=== PATIENT | female | born 1965 | race Caucasian/White ===

== ENCOUNTER → 2016-06-30 | Outpatient (REF) | payer BC | LOC: M LAB REF 16:51 | PROVIDERS: ATTEND Obstetrics & Gynecology | DX: R10.2 Pelvic and perineal pain (principal) ==

== ENCOUNTER → 2016-08-03 | Outpatient (REF) | payer BC | LOC: M LAB REF 17:05 | PROVIDERS: ATTEND Advanced Practice Midwife | DX: Z12.4 Encounter for screening for malignant neoplasm of cervix (principal) ==

== ENCOUNTER 2016-09-18 19:48 | Emergency (ER) | payer BC ==
[~2016-09-18] VITALS: Ht 154.9 cm; Wt 63.5 kg
[2016-09-18 19:48] VITALS: BP 169/85
[2016-09-18] MEDS ORDERED: AZO95TAB PO (19:55)
[2016-09-18] MEDS ORDERED: PENT10CA PO (19:55)
[2016-09-18] MEDS ORDERED: LEVA250T PO (20:26)
[2016-09-18] MEDS ORDERED: PYRI200T5 PO (20:26)
[2016-09-18] MEDS ORDERED: PHENAZOPYRIDINE 100 MG TAB PO ONE (20:30)
[2016-09-18] MEDS ORDERED: LevoFLOXacin 250 MG TABLET PO ONE (20:30)
== END 2016-09-18 20:35 | disposition home or self-care (01) ==
LOC: M ED 20:28
DX: N30.90 Cystitis, unspecified without hematuria (principal); F99 Mental disorder, not otherwise specified; R51 Headache; Z87.440 Personal history of urinary (tract) infections; Z88.1 Allergy status to other antibiotic agents; Z88.2 Allergy status to sulfonamides; Z91.040 Latex allergy status; Z79.899 Other long term (current) drug therapy

== ENCOUNTER → 2017-08-05 | Outpatient (REF) | payer BC ==
[2017-08-07 14:12] LABS: HPV HYBRID CAPTURE II Negative (Negative)
== END ==
LOC: M LAB REF 13:37
DX: Z01.419 Encounter for gynecological examination (general) (routine) without abnormal findings (principal); Z11.51 Encounter for screening for human papillomavirus (HPV)
CPT/HCPCS: G0123

== ENCOUNTER 2018-04-09 17:12 | Emergency (ER) | payer BC ==
[~2018-04-09] VITALS: Ht 154.9 cm; Wt 65.0 kg
[2018-04-09 17:12] VITALS: BP 174/84
[~2018-04-09 17:12] MED LIST: AZO95TAB PO; LEVA250T13 PO; MELA5TAB21 PO; PENT10CA PO; PROT20TA11 PO; PYRI1TAB5 PO; TURM500C3 PO
[2018-04-09] MEDS ORDERED: KETOROLAC 60 MG/2 ML VIAL (J1885) IM ONE (17:45)
[2018-04-09] MEDS ORDERED: NORCOTAB PO (19:07)
--- NOTE | 2018-04-09 19:12 | REPVR ---
EXAM: US Left Duplex Lower Extremity Veins, Limited EXAM DATE/TIME: 04/09/2018 6:55 PM CLINICAL HISTORY: 52 years old, female; Pain; Leg, lower; Left; Additional info: Left posterior knee pain, R/O dvt vs bakers cyst TECHNIQUE: Real-time Duplex ultrasound of the Left Lower Extremity with 2-D webber scale, color Doppler flow and spectral waveform analysis. Limited exam focused on the left lower extremity veins. COMPARISON: US Duplex, Ext,LOWER veins,unilat 04/24/2013 9:47 AM FINDINGS: Left deep veins: Unremarkable. The common femoral, femoral, popliteal and visualized calf veins are patent without thrombus. Normal compressibility, augmentation response and Doppler waveforms. Left superficial veins: Unremarkable. Saphenofemoral junction is patent without thrombus. Soft tissues: Unremarkable. IMPRESSION: No sonographic evidence of deep vein thrombosis. Electronically signed by: Dewayne Anthony On 04/09/2018 19:12:40 PM
[2018-04-09] MEDS ORDERED: NORCO 5/325MG TABLET (BULK FOR ED) PO ONE (19:15)
== END 2018-04-09 19:26 | disposition home or self-care (01) ==
LOC: M ED 17:12
DX: M79.662 Pain in left lower leg (principal); K21.9 Gastro-esophageal reflux disease without esophagitis; Z79.899 Other long term (current) drug therapy; Z91.040 Latex allergy status; Z88.2 Allergy status to sulfonamides; Z88.1 Allergy status to other antibiotic agents
CPT/HCPCS: 93971; 96372; 99282; J1885

== ENCOUNTER → 2018-08-22 | Outpatient (REF) | payer BC ==
[~2018-08-22] MED LIST changes: +HYDR-3715 PO
[2018-08-25 14:14] LABS: HPV HYBRID CAPTURE II Negative (Negative)
== END ==
LOC: M LAB REF 18:42
PROVIDERS: ATTEND Advanced Practice Midwife
DX: Z12.4 Encounter for screening for malignant neoplasm of cervix (principal)
CPT/HCPCS: 87624; G0123

== ENCOUNTER → 2018-11-24 | Outpatient (REF) | payer BC | LOC: M LAB REF 16:14 | PROVIDERS: ATTEND Physician Assistant | DX: N39.0 Urinary tract infection, site not specified (principal) ==

== ENCOUNTER 2019-03-13 04:10 | Emergency (ER) | payer BC ==
[~2019-03-13] VITALS: Ht 152.4 cm; Wt 66.4 kg
[2019-03-13] MEDS ORDERED: MAGN400C2 PO (04:16)
[2019-03-13] MEDS ORDERED: MULTCAP PO (04:16)
[2019-03-13] MEDS ORDERED: NS 1,000 ML IV ONE (04:30)
[2019-03-13] MEDS ORDERED: METOCLOPRAMIDE INJ 10MG/2ML VIAL (J2765) IV ONE (04:30)
[2019-03-13 04:42] LABS: BASO % 0.2 % (0.0-1.0); EOS % 0.2 % (0.0-3.0); HEMATOCRIT 41.1 % (36.0-47.0); HEMOGLOBIN 13.7 g/dl (12.0-15.5); LYMPH # 0.4 10^3/uL (1.5-5.0); LYMPH % 8.6 % (24.0-44.0); MEAN CORPUSCULAR HEMOGLOBIN 28.5 pg (27.0-33.0); MEAN CORPUSCULAR HGB CONC 33.3 g/dl (32.0-36.5); MEAN CORPUSCULAR VOLUME 85.6 fl (80.0-96.0); MONO # 0.2 10^3/uL (0.0-0.8); MONO % 4.8 % (0.0-5.0); NEUTROPHILS # 3.8 10^3/uL (1.5-8.5); PLATELET COUNT, AUTOMATED 179 10^3/uL (150-450); WHITE BLOOD COUNT 4.4 10^3/uL (4.0-10.0)
[2019-03-13 05:16] LABS: ALBUMIN 3.5 GM/DL (3.2-5.2); ALT/SGPT 25 U/L (12-78); BILIRUBIN,DIRECT 0.2 MG/DL (0.0-0.2); BILIRUBIN,TOTAL 0.6 MG/DL (0.2-1.0); BLOOD UREA NITROGEN 14 MG/DL (7-18); CALCIUM LEVEL 8.9 MG/DL (8.5-10.1); CARBON DIOXIDE LEVEL 26 MEQ/L (21-32); CHLORIDE LEVEL 104 MEQ/L (98-107); CREATININE FOR GFR 0.74 MG/DL (0.55-1.30); GLOMERULAR FILTRATION RATE > 60.0 (>51); GLUCOSE, FASTING 131 MG/DL (70-100); LIPASE 69 U/L (73-393); POTASSIUM SERUM 3.9 MEQ/L (3.5-5.1); SODIUM LEVEL 139 MEQ/L (136-145)
[2019-03-13] MEDS ORDERED: REGL10TA6 PO (06:03)
[2019-03-13 06:34] VITALS: BP 116/62
== END 2019-03-13 07:11 | disposition home or self-care (01) ==
LOC: M ED 04:10
DX: K52.9 Noninfective gastroenteritis and colitis, unspecified (principal); Z20.828 Contact with and (suspected) exposure to other viral communicable diseases; Z88.2 Allergy status to sulfonamides; Z88.1 Allergy status to other antibiotic agents; Z91.040 Latex allergy status; Z79.899 Other long term (current) drug therapy
CPT/HCPCS: 80048; 80076; 81001; 83690; 85025; 96361; 96374; 99284; J2765

== ENCOUNTER → 2019-10-09 | Outpatient (CLI) | payer BC ==
[~2019-10-09] MED LIST changes: +MAGN400C2 PO; +MULTCAP PO; +REGL10TA6 PO
--- NOTE | 2019-10-09 16:46 | REPMRS ---
Patient History The patient states she had a clinical breast exam in September 2019. Patient is postmenopausal. No known family history of cancer. Digital Woman Screen Mammo: October 09, 2019 - Exam #: [id number] Bilateral CC and MLO view(s) were taken. Technologist: Lashanda Cee, Technologist No prior studies available for comparison. FINDINGS: There are scattered fibroglandular densities. The Volpara volumetric breast density category is: B. There is no evidence of dominant mass, architectural distortion, or grouped microcalcification typical of malignancy. 3-D tomosynthesis shows no additional findings. Assessment: BI-RADS/ACR category 1 mammogram. Negative Mammogram. Recommendation Routine screening mammogram of both breasts in 1 year (for women over age 40). This patient's Lifetime Breast Cancer RIsk is estimated at 7.5 %. This mammogram was interpreted with the aid of an FDA-approved computer-aided dectection system. Electronically Signed By: Colton Tinajero MD 10/09/19 0312
== END ==
LOC: M WHC 15:19
PROVIDERS: ATTEND Nurse Practitioner Women's Health
DX: Z12.31 Encounter for screening mammogram for malignant neoplasm of breast (principal); Z78.0 Asymptomatic menopausal state

== ENCOUNTER → 2019-12-11 | Outpatient (REF) | payer BC | LOC: M WHC 14:30 | PROVIDERS: ATTEND Advanced Practice Midwife | DX: Z12.4 Encounter for screening for malignant neoplasm of cervix (principal) ==

== ENCOUNTER 2020-04-19 20:44 | Emergency (ER) | payer BC ==
[~2020-04-19] VITALS: Ht 154.9 cm; Wt 65.8 kg
[2020-04-19] MEDS ORDERED: ACET-908 PO (20:53)
[2020-04-19] MEDS ORDERED: ASPI1CHW3 PO (20:53)
[2020-04-19] MEDS ORDERED: GI COCKTAIL 50ML BTL(HYOSCYAMINE/MAALOX/LIDOCAINE VISCOUS)(1:3:1) PO ONE (21:30)
[2020-04-19 21:56] VITALS: BP 156/80
[2020-04-19] MEDS ORDERED: METOPROLOL TART 25 MG TABLET PO ONE (22:00)
[2020-04-19] MEDS ORDERED: ACETAMINOPHEN TAB 650MG DOSE (2X325MG) PO ONE (22:00)
--- NOTE | 2020-04-19 22:01 | REPVR ---
PROCEDURE INFORMATION: Exam: XR Chest, 1 View Exam date and time: 04/19/2020 9:28 PM Age: 54 years old Clinical indication: Chest pain; Type not specified TECHNIQUE: Imaging protocol: XR of the chest Views: 1 view. COMPARISON: No relevant prior studies available. FINDINGS: Lungs: Unremarkable. No consolidation. Pleural space: Unremarkable. No pleural effusion. No pneumothorax. Heart/Mediastinum: Unremarkable. No cardiomegaly. Bones/joints: Unremarkable. IMPRESSION: No acute findings. Electronically signed by: Daniel Tam On 04/19/2020 22:01:28 PM
[2020-04-19 22:46] LABS: BASO % 0.2 % (0.0-1.0); EOS # 0.3 10^3/uL (0.0-0.5); HEMATOCRIT 42.6 % (36.0-47.0); HEMOGLOBIN 13.8 g/dl (12.0-15.5); LYMPH # 1.6 10^3/uL (1.5-5.0); LYMPH % 20.1 % (24.0-44.0); MEAN CORPUSCULAR HEMOGLOBIN 28.5 pg (27.0-33.0); MEAN CORPUSCULAR HGB CONC 32.4 g/dl (32.0-36.5); MEAN CORPUSCULAR VOLUME 87.8 fl (80.0-96.0); MONO # 0.5 10^3/uL (0.0-0.8); MONO % 6.2 % (0.0-5.0); NEUTROPHILS # 5.5 10^3/uL (1.5-8.5); NEUTROPHILS % 69.1 % (36.0-66.0); PLATELET COUNT, AUTOMATED 269 10^3/uL (150-450); RED BLOOD COUNT 4.85 10^6/uL (4.00-5.40)
[2020-04-19 22:50] LABS: INR 0.87
[2020-04-19 22:51] LABS: PARTIAL THROMBOPLASTIN TIME 26.7 SECONDS (24.2-38.5)
[2020-04-19 23:05] LABS: ALBUMIN 4.4 GM/DL (3.2-5.2); ALT/SGPT 40 U/L (12-78); BILIRUBIN,DIRECT < 0.1 MG/DL (0.0-0.2); BILIRUBIN,TOTAL 0.4 MG/DL (0.2-1.0); BLOOD UREA NITROGEN 25 MG/DL (7-18); CALCIUM LEVEL 9.2 MG/DL (8.5-10.1); CARBON DIOXIDE LEVEL 30 MEQ/L (21-32); CHLORIDE LEVEL 104 MEQ/L (98-107); CK-MB VALUE MASS 1.3 NG/ML (<3.6); CPK CREATINE PHOSPHOKINASE 66 U/L (26-192); CREATININE FOR GFR 0.83 MG/DL (0.55-1.30); FREE T4 1.02 NG/DL (0.76-1.46); GLOMERULAR FILTRATION RATE > 60.0 (>51); GLUCOSE, FASTING 117 MG/DL (70-100); LIPASE 192 U/L (73-393); MAGNESIUM LEVEL 2.1 MG/DL (1.8-2.4); MB/CK RELATIVE INDEX 1.97 (< OR =4); NT-PRO BNP 23 PG/ML (<125); POTASSIUM SERUM 3.9 MEQ/L (3.5-5.1); SODIUM LEVEL 138 MEQ/L (136-145); TOTAL PROTEIN 7.8 GM/DL (6.4-8.2); TROPONIN I < 0.02 NG/ML (< 0.10)
[2020-04-19] MEDS ORDERED: METO1TAB87 PO (23:21)
[2020-04-19 23:30] VITALS: BP 119/70
--- NOTE | 2020-04-20 17:57 | ECGEPIP ---
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
== END 2020-04-19 23:37 | disposition home or self-care (01) ==
LOC: M ED 20:44
DX: R00.2 Palpitations (principal); I10 Essential (primary) hypertension; R51.9 Headache, unspecified; Z87.891 Personal history of nicotine dependence; Z88.2 Allergy status to sulfonamides; Z88.1 Allergy status to other antibiotic agents; Z91.040 Latex allergy status; Z79.899 Other long term (current) drug therapy; Z79.82 Long term (current) use of aspirin

== ENCOUNTER → 2020-05-22 | Outpatient (CLI) | payer BC ==
[~2020-05-22] MED LIST changes: +ACET-908 PO; +ASPI1CHW3 PO; +METO1TAB87 PO
[2020-05-22 12:57] LABS: BLOOD UREA NITROGEN 18 MG/DL (7-18); CALCIUM LEVEL 9.2 MG/DL (8.5-10.1); CARBON DIOXIDE LEVEL 28 MEQ/L (21-32); CHLORIDE LEVEL 107 MEQ/L (98-107); CREATININE FOR GFR 0.69 MG/DL (0.55-1.30); GLOMERULAR FILTRATION RATE > 60.0 (>51); GLUCOSE, FASTING 87 MG/DL (70-100); POTASSIUM SERUM 4.3 MEQ/L (3.5-5.1); SODIUM LEVEL 142 MEQ/L (136-145)
[2020-05-22 13:12] LABS: CREATININE, URINE 68.5 MG/DL; MALB URINE SIEMENS 5.7 MG/L; MAU/CREAT RATIO 8.3 MCG/MG (0.0-30.0)
== END ==
LOC: M WUC 10:41
PROVIDERS: ATTEND Internal Medicine Cardiovascular Disease
DX: I10 Essential (primary) hypertension (principal)

== ENCOUNTER 2020-07-22 15:47 | Emergency (ER) | payer BC ==
[~2020-07-22] VITALS: Ht 154.9 cm; Wt 64.2 kg
[2020-07-22 15:48] VITALS: BP 173/83
[2020-07-22 18:26] LABS: BASO % 0.5 % (0.0-1.0); EOS # 0.4 10^3/uL (0.0-0.5); EOS % 6.9 % (0.0-3.0); HEMATOCRIT 41.7 % (36.0-47.0); HEMOGLOBIN 13.8 g/dl (12.0-15.5); LYMPH # 1.4 10^3/uL (1.5-5.0); LYMPH % 25.2 % (24.0-44.0); MEAN CORPUSCULAR HEMOGLOBIN 29.1 pg (27.0-33.0); MEAN CORPUSCULAR HGB CONC 33.1 g/dl (32.0-36.5); MEAN CORPUSCULAR VOLUME 87.8 fl (80.0-96.0); MONO # 0.3 10^3/uL (0.0-0.8); MONO % 5.2 % (2.0-8.0); NEUTROPHILS # 3.5 10^3/uL (1.5-8.5); NEUTROPHILS % 61.8 % (36.0-66.0); PLATELET COUNT, AUTOMATED 255 10^3/uL (150-450); RED BLOOD COUNT 4.75 10^6/uL (4.00-5.40); WHITE BLOOD COUNT 5.6 10^3/uL (4.0-10.0)
[2020-07-22 18:39] LABS: INR 0.91; PARTIAL THROMBOPLASTIN TIME 24.8 SECONDS (24.2-38.5); PROTHROMBIN TIME 12.4 SECONDS (12.5-14.3)
[2020-07-22 18:44] LABS: ALBUMIN 4.4 GM/DL (3.2-5.2); ALT/SGPT 29 U/L (12-78); AMYLASE 63 U/L (25-115); BILIRUBIN,DIRECT < 0.1 MG/DL (0.0-0.2); BILIRUBIN,TOTAL 0.3 MG/DL (0.2-1.0); BLOOD UREA NITROGEN 14 MG/DL (7-18); CALCIUM LEVEL 9.6 MG/DL (8.5-10.1); CARBON DIOXIDE LEVEL 30 MEQ/L (21-32); CHLORIDE LEVEL 107 MEQ/L (98-107); CREATININE FOR GFR 0.76 MG/DL (0.55-1.30); GLOMERULAR FILTRATION RATE > 60.0 (>51); GLUCOSE, FASTING 106 MG/DL (70-100); LIPASE 128 U/L (73-393); POTASSIUM SERUM 4.1 MEQ/L (3.5-5.1); SODIUM LEVEL 141 MEQ/L (136-145); TOTAL PROTEIN 8.1 GM/DL (6.4-8.2)
== END 2020-07-22 19:32 | disposition left against medical advice (07) ==
LOC: M ED 15:47
DX: R10.9 Unspecified abdominal pain (principal); Z53.21 Procedure and treatment not carried out due to patient leaving prior to being seen by health care provider; Z79.899 Other long term (current) drug therapy; Z88.2 Allergy status to sulfonamides; Z88.1 Allergy status to other antibiotic agents; Z91.040 Latex allergy status

== ENCOUNTER → 2020-07-22 | Outpatient (REF) | payer BC ==
[~2020-07-22] MED LIST changes: -ACET-908 PO; +ACET-910 PO
== END ==
LOC: M LAB REF 19:42
PROVIDERS: ATTEND Physician Assistant
DX: L03.316 Cellulitis of umbilicus (principal)

== ENCOUNTER → 2021-02-03 | Outpatient (REF) | payer BC | LOC: M SFHCWAGY 13:18 | PROVIDERS: ATTEND Advanced Practice Midwife | DX: Z12.4 Encounter for screening for malignant neoplasm of cervix (principal); Z01.419 Encounter for gynecological examination (general) (routine) without abnormal findings ==

== ENCOUNTER → 2021-03-14 | Outpatient (CLI) | payer BC ==
--- NOTE | 2021-03-14 08:43 | REPMRS ---
Patient History The patient states she had a clinical breast exam in January 2021. No known family history of cancer. Patient states no breast complaints today. Patient has signed MRS History Sheet. Digital Woman Screen Mammo: March 14, 2021 - Exam #: [id number] Bilateral CC and MLO view(s) were taken. Technologist: Maryjo Suarez Technologist Prior study comparison: October 09, 2019, bilateral digital woman screen mammo performed at [facility]. FINDINGS: There are scattered fibroglandular densities. Screening. Digital screening (2D) mammography was performed bilaterally in the CC and MLO projections. Additionally, breast tomosynthesis (3D mammography) was performed bilaterally in the CC and MLO projections. Todays exam was compared to the prior exam/exams. By history, the patient has no complaints of a palpable breast abnormality or other significant breast complaints. The breasts are unchanged in size and shape. There are no corona-soft tissue densities or spiculated masses. There is no internal architectural distortion. Once again, stable benign appearing calcifications are seen.There are no suspicious corona-calcific clusters. Skin thickening or nipple retraction is not present. IMPRESSION: BI-RADS Category 2- Benign Findings. There is no evidence of malignant alteration of the breasts. Followup examination recommended in one year. The Volpara volumetric breast density category is B, there are scattered areas of fibroglandular densities. This mammogram was read with the assistance of [employer],an FDA approved computer aided detection system for mammography. The lifetime Tyrer-Cuzick score is 7.4 % Negative x-ray reports should not delay surgical consultation if a dominant or clinically suspicious mass is present. Not all breast cancers can be identified by mammography. Therefore, we recommend that you continue to perform regular breast self-examination and physical examination and then promptly contact your physician of any concerns or changes. Adenosis and dense breasts may obscure an underlying neoplasm. Assessment: BI-RADS/ACR category 2 mammogram. Benign Findings. Recommendation Routine screening mammogram of both breasts in 1 year. Electronically Signed By: Nas Brown DO 03/14/21 0884
== END ==
LOC: M WHC 07:21
PROVIDERS: ATTEND Advanced Practice Midwife
DX: Z12.31 Encounter for screening mammogram for malignant neoplasm of breast (principal)

== ENCOUNTER 2021-04-22 05:05 | Emergency (ER) | payer BC ==
[~2021-04-22] VITALS: Ht 154.9 cm; Wt 65.0 kg
[2021-04-22] MEDS ORDERED: CARB1TAB PO (05:16)
[2021-04-22] MEDS ORDERED: CARV6.25 PO (05:16)
[2021-04-22 06:16] LABS: BASO % 0.4 % (0.0-1.0); EOS # 0.2 10^3/uL (0.0-0.5); EOS % 3.3 % (0.0-3.0); HEMATOCRIT 37.9 % (36.0-47.0); HEMOGLOBIN 12.9 g/dl (12.0-15.5); LYMPH # 0.8 10^3/uL (1.5-5.0); LYMPH % 16.7 % (24.0-44.0); MEAN CORPUSCULAR HEMOGLOBIN 29.3 pg (27.0-33.0); MEAN CORPUSCULAR VOLUME 85.9 fl (80.0-96.0); MONO # 0.3 10^3/uL (0.0-0.8); MONO % 5.9 % (2.0-8.0); NEUTROPHILS # 3.6 10^3/uL (1.5-8.5); NEUTROPHILS % 73.3 % (36.0-66.0); PLATELET COUNT, AUTOMATED 277 10^3/uL (150-450); RED BLOOD COUNT 4.41 10^6/uL (4.00-5.40); WHITE BLOOD COUNT 4.9 10^3/uL (4.0-10.0)
[2021-04-22] MEDS ORDERED: CARVedilol 6.25 MG TAB PO ONE (06:20)
[2021-04-22] MEDS ORDERED: PANTOPRAZOLE 40MG VIAL (C9113 PER 1) IV ONE (06:35)
[2021-04-22 06:44] LABS: ALBUMIN 3.4 GM/DL (3.2-5.2); ALT/SGPT 16 U/L (12-78); BILIRUBIN,DIRECT < 0.1 MG/DL (0.0-0.2); BILIRUBIN,TOTAL 0.2 MG/DL (0.2-1.0); BLOOD UREA NITROGEN 18 MG/DL (7-18); CALCIUM LEVEL 9.2 MG/DL (8.5-10.1); CARBON DIOXIDE LEVEL 27 MEQ/L (21-32); CHLORIDE LEVEL 108 MEQ/L (98-107); CREATININE FOR GFR 0.79 MG/DL (0.55-1.30); GLOMERULAR FILTRATION RATE > 60.0 (>51); GLUCOSE, FASTING 142 MG/DL (70-100); LIPASE 102 U/L (73-393); POTASSIUM SERUM 4.2 MEQ/L (3.5-5.1); SODIUM LEVEL 141 MEQ/L (136-145); TOTAL PROTEIN 7.2 GM/DL (6.4-8.2)
[2021-04-22 06:45] LABS: CK-MB VALUE MASS < 1.0 NG/ML (<3.6); CPK CREATINE PHOSPHOKINASE 44 U/L (26-192); MB/CK RELATIVE INDEX 2.27 (< OR =4)
[2021-04-22] MEDS ORDERED: ISOVUE-370 76% 100ML VIAL As Ordered ONE (07:04)
[2021-04-22 07:08] LABS: RSV AMPLIFICATION NEGATIVE (NEGATIVE)
[2021-04-22 07:59] VITALS: BP 127/77
== END 2021-04-22 08:04 | disposition home or self-care (01) ==
LOC: M ED 05:05
DX: M94.0 Chondrocostal junction syndrome [Tietze] (principal); R07.89 Other chest pain; K12.0 Recurrent oral aphthae; I10 Essential (primary) hypertension; R91.1 Solitary pulmonary nodule; R51.9 Headache, unspecified; K21.9 Gastro-esophageal reflux disease without esophagitis; G25.81 Restless legs syndrome; Z87.891 Personal history of nicotine dependence; Z88.2 Allergy status to sulfonamides; Z88.1 Allergy status to other antibiotic agents; Z91.040 Latex allergy status
CPT/HCPCS: 71046; 71275; 80048; 80076; 82550; 82553; 83690; 84484; 85025; 85379; 87631; 93005; 96374; 99284; C9113; Q9967

== ENCOUNTER → 2021-04-30 | Outpatient (CLI) | payer BC ==
[~2021-04-30] MED LIST changes: +CARB1TAB PO; +CARV6.25 PO
[2021-04-30 09:57] LABS: CHOLESTEROL RISK RATIO 3.684 (<5)
== END ==
LOC: M WUC 08:39
PROVIDERS: ATTEND Internal Medicine Cardiovascular Disease
DX: I10 Essential (primary) hypertension (principal)

== ENCOUNTER → 2021-06-24 | Outpatient (CLI) | payer BC ==
[2021-06-24 16:31] LABS: FERRITIN 40 NG/ML (8-252); IRON (FE) 71 UG/DL (50-170); PERCENT SATURATION 20.2 % (13.2-45.0); RHEUMATOID FACTOR QUANT < 10.0 IU/ML (<15.0); TOTAL IRON BINDING CAPACITY 351 UG/DL (250-450)
[2021-06-24 16:50] LABS: TOTAL 25(OH) VITAMIN D 29.8 NG/ML (30.0-100.0); VITAMIN B12 LEVEL 567 PG/ML
== END ==
LOC: M WUC 14:05
PROVIDERS: ATTEND Psychiatry & Neurology Neurology
DX: D50.9 Iron deficiency anemia, unspecified (principal)

== ENCOUNTER → 2022-03-18 | Outpatient (REF) | payer BC | LOC: M LAB REF 09:29 | PROVIDERS: ATTEND Physician Assistant | DX: R30.0 Dysuria (principal) ==

== ENCOUNTER → 2022-04-09 | Outpatient (CLI) | payer BC ==
[2022-04-09 14:26] LABS: HEMATOCRIT 38.9 % (36.0-47.0); HEMOGLOBIN 12.6 g/dl (12.0-15.5); MEAN CORPUSCULAR HGB CONC 32.4 g/dl (32.0-36.5); MEAN CORPUSCULAR VOLUME 89.4 fl (80.0-96.0); PLATELET COUNT, AUTOMATED 274 10^3/uL (150-450); RED BLOOD COUNT 4.35 10^6/uL (4.00-5.40); WHITE BLOOD COUNT 9.8 10^3/uL (4.0-10.0)
== END ==
LOC: M PLALAB 10:41
PROVIDERS: ATTEND Advanced Practice Midwife
DX: Z01.419 Encounter for gynecological examination (general) (routine) without abnormal findings (principal)

== ENCOUNTER → 2022-04-09 | Outpatient (REF) | payer BC | LOC: M PLALAB 12:56 | PROVIDERS: ATTEND Advanced Practice Midwife | DX: Z12.4 Encounter for screening for malignant neoplasm of cervix (principal) | CPT/HCPCS: 87624; G0123 ==

== ENCOUNTER → 2022-04-09 | Outpatient (CLI) | payer BC | LOC: M WHC 09:13 | PROVIDERS: ATTEND Nurse Practitioner Family | DX: Z12.31 Encounter for screening mammogram for malignant neoplasm of breast (principal) ==

== ENCOUNTER 2022-05-08 15:55 | Emergency (ER) | payer BC ==
[~2022-05-08] VITALS: Ht 152.4 cm; Wt 67.4 kg
[2022-05-08] MEDS ORDERED: ASPIRIN 81MG CHEW TABLET PO ONE (16:55)
[2022-05-08] MEDS ORDERED: GI COCKTAIL 50ML BTL(HYOSCYAMINE/MAALOX/LIDOCAINE VISCOUS)(1:3:1) PO ONE (16:55)
[2022-05-08 16:57] LABS: HEMATOCRIT 39.8 % (36.0-47.0); HEMOGLOBIN 13.6 g/dl (12.0-15.5); MEAN CORPUSCULAR HEMOGLOBIN 29.8 pg (27.0-33.0); MEAN CORPUSCULAR HGB CONC 34.2 g/dl (32.0-36.5); MEAN CORPUSCULAR VOLUME 87.1 fl (80.0-96.0); PLATELET COUNT, AUTOMATED 284 10^3/uL (150-450); RED BLOOD COUNT 4.57 10^6/uL (4.00-5.40); WHITE BLOOD COUNT 7.1 10^3/uL (4.0-10.0)
[2022-05-08] MEDS: NITROGLYCERIN 0.4MG SUBL TABLET SL PRN ×2 (17:05→18:27)
[2022-05-08 17:16] LABS: BASO % 0.3 % (0.0-1.0); EOS # 0.3 10^3/uL (0.0-0.5); EOS % 4.1 % (0.0-3.0); LYMPH # 1.2 10^3/uL (1.5-5.0); LYMPH % 17.3 % (24.0-44.0); MONO # 0.5 10^3/uL (0.0-0.8); MONO % 6.5 % (2.0-8.0); NEUTROPHILS # 5.1 10^3/uL (1.5-8.5); NEUTROPHILS % 71.5 % (36.0-66.0)
[2022-05-08 17:18] LABS: ALBUMIN 3.9 G/DL (3.2-5.2); ALKALINE PHOSPHATASE 78 U/L (46-116); ALT/SGPT 20 U/L (7.0-40); AST/SGOT 21 U/L (<34); BILIRUBIN,TOTAL 0.4 MG/DL (0.3-1.2); BLOOD UREA NITROGEN 19 MG/DL (9-23); CALCIUM LEVEL 9.1 MG/DL (8.5-10.1); CARBON DIOXIDE LEVEL 25 MMOL/L (20-31); CHLORIDE LEVEL 107 MMOL/L (98-107); CK-MB VALUE MASS < 1.0 NG/ML (<3.6); CREATININE FOR GFR 0.88 MG/DL (0.55-1.30); GLOMERULAR FILTRATION RATE > 60.0 (>51); GLUCOSE, FASTING 133 MG/DL (60-100); POTASSIUM SERUM 4.1 MMOL/L (3.5-5.1); SODIUM LEVEL 140 MMOL/L (136-145); TOTAL PROTEIN 7.8 G/DL (5.7-8.2)
[2022-05-08 17:24] LABS: CPK CREATINE PHOSPHOKINASE 59 U/L (34-145); MB/CK RELATIVE INDEX 1.69 (< OR =4)
[2022-05-08] MEDS ORDERED: ISOVUE-370 76% 100ML VIAL As Ordered ONE (17:28)
[2022-05-08 17:47] LABS: INR 0.91; PARTIAL THROMBOPLASTIN TIME 25.8 SECONDS (24.8-34.2); PROTHROMBIN TIME 12.4 SECONDS (12.5-14.5)
[2022-05-08 17:57] LABS: LIPASE 34 U/L (12-53)
[2022-05-08 18:02] LABS: THYROID STIMULATING HORMONE 1.991 uIU/ML (0.55-4.78)
[2022-05-08 18:13] LABS: CK-MB VALUE MASS < 1.0 NG/ML (<3.6); CPK CREATINE PHOSPHOKINASE 69 U/L (34-145); MB/CK RELATIVE INDEX 1.44 (< OR =4)
[2022-05-08 18:27] VITALS: BP 127/68
[2022-05-08 19:14] LABS: RSV AMPLIFICATION NEGATIVE (NEGATIVE)
[2022-05-08 20:56] VITALS: BP 124/56
== END 2022-05-08 21:18 | disposition home or self-care (01) ==
LOC: M ED 15:55
DX: E07.9 Disorder of thyroid, unspecified (principal); I10 Essential (primary) hypertension; K21.9 Gastro-esophageal reflux disease without esophagitis; G25.81 Restless legs syndrome; Z87.891 Personal history of nicotine dependence; Z79.899 Other long term (current) drug therapy; Z88.2 Allergy status to sulfonamides; Z88.1 Allergy status to other antibiotic agents; Z91.040 Latex allergy status

== ENCOUNTER → 2022-09-03 | Outpatient (CLI) | payer BC ==
[~2022-09-03] MED LIST changes: +ASPI-655 PO; -ASPI1CHW3 PO
== END ==
LOC: M RAD 10:54
PROVIDERS: ATTEND Internal Medicine
DX: R91.1 Solitary pulmonary nodule (principal)

== ENCOUNTER → 2023-04-22 | Outpatient (CLI) | payer BC | LOC: M WHC 15:10 | PROVIDERS: ATTEND Advanced Practice Midwife | DX: Z12.31 Encounter for screening mammogram for malignant neoplasm of breast (principal) ==

== ENCOUNTER → 2023-05-03 | Outpatient (CLI) | payer BC | LOC: M RAD 14:30 | PROVIDERS: ATTEND Orthopaedic Surgery | DX: M79.662 Pain in left lower leg (principal) ==

== ENCOUNTER → 2023-05-26 | Outpatient (REF) | payer BC | LOC: M LAB REF 20:49 | PROVIDERS: ATTEND Student in an Organized Health Care Education/Training Program | DX: L03.011 Cellulitis of right finger (principal) ==

== ENCOUNTER → 2023-08-19 | Outpatient (CLI) | payer BC ==
[2023-08-19 12:07] LABS: ALBUMIN 3.4 G/DL (3.2-5.2); ALKALINE PHOSPHATASE 78 U/L (46-116); ALT/SGPT 21 U/L (7.0-40); AST/SGOT 10 U/L (<34); BILIRUBIN,TOTAL 0.4 MG/DL (0.3-1.2); BLOOD UREA NITROGEN 18 MG/DL (9-23); CALCIUM LEVEL 9.2 MG/DL (8.5-10.1); CARBON DIOXIDE LEVEL 28 MMOL/L (20-31); CHLORIDE LEVEL 107 MMOL/L (98-107); CHOLESTEROL LEVEL 246 MG/DL (<200); CHOLESTEROL RISK RATIO 4.35 (<5); CREATININE FOR GFR 0.61 MG/DL (0.55-1.30); GLOMERULAR FILTRATION RATE > 60.0 (>51); GLUCOSE, FASTING 135 MG/DL (60-100); HDL CHOLESTEROL 56.5 MG/DL (>40); LDL CHOLESTEROL 172.3 MG/DL (<100); NON-HDL-C 189.5 MG/DL; POTASSIUM SERUM 4.8 MMOL/L (3.5-5.1); SODIUM LEVEL 140 MMOL/L (136-145); TOTAL PROTEIN 7.1 G/DL (5.7-8.2); TRIGLYCERIDES LEVEL 86 MG/DL (<150)
== END ==
LOC: M PLALAB 07:02
PROVIDERS: ATTEND Internal Medicine
DX: E78.5 Hyperlipidemia, unspecified (principal)

== ENCOUNTER → 2023-08-24 | Outpatient (CLI) | payer BC | LOC: M PLAIMG 10:00 | PROVIDERS: ATTEND Internal Medicine | DX: R91.1 Solitary pulmonary nodule (principal) ==

== ENCOUNTER 2023-09-26 11:06 | Emergency (ER) | payer BC ==
[~2023-09-26] VITALS: Ht 154.9 cm; Wt 65.5 kg
[2023-09-26] MEDS ORDERED: ROSU10TA61 (11:22)
[2023-09-26 12:40] LABS: BASO % 0.2 % (0.0-1.0); EOS # 0.1 10^3/uL (0.0-0.5); EOS % 1.3 % (0.0-3.0); HEMATOCRIT 42.6 % (36.0-47.0); HEMOGLOBIN 14.5 g/dl (12.0-15.5); LYMPH # 0.8 10^3/uL (1.5-5.0); LYMPH % 17.5 % (24.0-44.0); MEAN CORPUSCULAR HEMOGLOBIN 29.4 pg (27.0-33.0); MEAN CORPUSCULAR VOLUME 86.2 fl (80.0-96.0); MONO # 0.3 10^3/uL (0.0-0.8); MONO % 6.5 % (2.0-8.0); NEUTROPHILS # 3.3 10^3/uL (1.5-8.5); NEUTROPHILS % 74.1 % (36.0-66.0); PLATELET COUNT, AUTOMATED 242 10^3/uL (150-450); RED BLOOD COUNT 4.94 10^6/uL (4.00-5.40); WHITE BLOOD COUNT 4.5 10^3/uL (4.0-10.0)
[2023-09-26] MEDS: NS 1,000 ML IV ONE (12:44)
[2023-09-26] MEDS: ONDANSETRON 4MG 2ML VIAL IV ONE (12:44)
[2023-09-26 13:05] LABS: ALBUMIN 4.4 G/DL (3.2-5.2); BILIRUBIN,DIRECT 0.3 MG/DL (<0.4); BILIRUBIN,TOTAL 0.8 MG/DL (0.3-1.2); TOTAL PROTEIN 7.9 G/DL (5.7-8.2)
[2023-09-26] MEDS ORDERED: ONDA-282 PO (14:40)
[2023-09-26 15:05] VITALS: BP 146/70; TEMP 98.1; O2SAT 99
== END 2023-09-26 15:15 | disposition home or self-care (01) ==
LOC: M ED 11:06
DX: R11.2 Nausea with vomiting, unspecified (principal); R19.7 Diarrhea, unspecified; F10.10 Alcohol abuse, uncomplicated; Z88.2 Allergy status to sulfonamides; Z88.1 Allergy status to other antibiotic agents; Z91.040 Latex allergy status; Z79.899 Other long term (current) drug therapy
CPT/HCPCS: 80047; 80076; 81001; 83605; 83690; 85025; 87507; 96361; 96374; 99284; J2405

== ENCOUNTER 2024-03-01 21:43 | Emergency (ER) | payer BC ==
[~2024-03-01] VITALS: Ht 160 cm; Wt 71.1 kg
[~2024-03-01 21:43] MED LIST changes: +ONDA-282 PO; +ROSU10TA61
[2024-03-01 22:49] LABS: CK-MB VALUE MASS < 1.0 NG/ML (<3.6)
[2024-03-01 22:50] LABS: BLOOD UREA NITROGEN 14 MG/DL (9-23); CALCIUM LEVEL 9.9 MG/DL (8.5-10.1); CARBON DIOXIDE LEVEL 28 MMOL/L (20-31); CHLORIDE LEVEL 105 MMOL/L (98-107); CPK CREATINE PHOSPHOKINASE 59 U/L (34-145); CREATININE FOR GFR 0.73 MG/DL (0.55-1.30); GLOMERULAR FILTRATION RATE > 60.0 (>51); GLUCOSE, FASTING 179 MG/DL (60-100); MB/CK RELATIVE INDEX 1.69 (< OR =4); POTASSIUM SERUM 3.8 MMOL/L (3.5-5.1); SODIUM LEVEL 140 MMOL/L (136-145)
[2024-03-01 22:52] LABS: BASO % 0.5 % (0.0-1.0); EOS # 0.6 10^3/uL (0.0-0.5); EOS % 10.2 % (0.0-3.0); HEMATOCRIT 39.5 % (36.0-47.0); HEMOGLOBIN 13.5 g/dl (12.0-15.5); LYMPH # 1.5 10^3/uL (1.5-5.0); LYMPH % 23.5 % (24.0-44.0); MEAN CORPUSCULAR HEMOGLOBIN 29.4 pg (27.0-33.0); MEAN CORPUSCULAR HGB CONC 34.2 g/dl (32.0-36.5); MEAN CORPUSCULAR VOLUME 86.1 fl (80.0-96.0); MONO # 0.3 10^3/uL (0.0-0.8); MONO % 5.2 % (2.0-8.0); NEUTROPHILS # 3.7 10^3/uL (1.5-8.5); NEUTROPHILS % 60.3 % (36.0-66.0); PLATELET COUNT, AUTOMATED 255 10^3/uL (150-450); RED BLOOD COUNT 4.59 10^6/uL (4.00-5.40); WHITE BLOOD COUNT 6.2 10^3/uL (4.0-10.0)
[2024-03-02 00:18] LABS: CK-MB VALUE MASS < 1.0 NG/ML (<3.6)
[2024-03-02 00:19] LABS: CPK CREATINE PHOSPHOKINASE 50 U/L (34-145)
[2024-03-02] MEDS: ACETAMINOPHEN 325 MG TAB PO ONE (02:25)
[2024-03-02 02:45] VITALS: TEMP 97
[2024-03-02] MEDS: KETOROLAC 30 MG/ML 1ML VIAL IV ONE (03:46)
[2024-03-02] MEDS ORDERED: ISOVUE-370 76% 100ML VIAL As Ordered ONE (03:48)
[2024-03-02] MEDS: LABETALOL 100MG/20ML VIAL IV STA (03:48)
[2024-03-02 05:30] VITALS: BP 153/80
[2024-03-02] MEDS ORDERED: AMLO25TA PO (05:42)
[2024-03-02 05:45] VITALS: O2SAT 97
== END 2024-03-02 06:06 | disposition home or self-care (01) ==
LOC: M ED 21:43
DX: R07.89 Other chest pain (principal); R51.9 Headache, unspecified; I10 Essential (primary) hypertension; E78.5 Hyperlipidemia, unspecified; K21.9 Gastro-esophageal reflux disease without esophagitis; Z88.2 Allergy status to sulfonamides; Z88.8 Allergy status to other drugs, medicaments and biological substances; Z91.040 Latex allergy status; Z79.899 Other long term (current) drug therapy
CPT/HCPCS: 70450; 71045; 71275; 80048; 82550; 82553; 84484; 85025; 87486; 87581; 87633; 87798; 93005; 93041; 94760; 96374; 96375; 99285; J1885; J1920; Q9967

== ENCOUNTER → 2024-08-29 | Outpatient (CLI) | payer BC ==
[~2024-08-29] MED LIST changes: +AMLO25TA PO; +TURM1CAP7 PO; -TURM500C3 PO
== END ==
LOC: M WHC 09:11
PROVIDERS: ATTEND Internal Medicine
DX: Z12.31 Encounter for screening mammogram for malignant neoplasm of breast (principal)

== ENCOUNTER → 2024-11-16 | Outpatient (CLI) | payer BC | LOC: M WHC 14:18 | PROVIDERS: ATTEND Advanced Practice Midwife | DX: Z53.9 Procedure and treatment not carried out, unspecified reason (principal) ==

== ENCOUNTER → 2025-02-07 | Outpatient (REF) | payer BC ==
[~2025-02-07] MED LIST changes: -ASPI-655 PO; +ASPI-737 PO; -ROSU10TA61; +ROSU10TA90
== END ==
LOC: M LAB REF 20:17
PROVIDERS: ATTEND Physician Assistant
DX: R30.0 Dysuria (principal)

== ENCOUNTER → 2025-02-09 | Outpatient (CLI) | payer BC | LOC: M RAD 14:59 | PROVIDERS: ATTEND Internal Medicine | DX: D38.1 Neoplasm of uncertain behavior of trachea, bronchus and lung (principal) ==